=== PATIENT | female | born 1985 | race Caucasian/White ===

== ENCOUNTER 2018-06-18 01:00 | Observation (INO) | payer BC ==
[~2018-06-18] VITALS: Ht 154.9 cm; Wt 81.6 kg
[2018-06-18] VITALS (10 sets, daily range): BP systolic 88–120; BP diastolic 49–68
[~2018-06-18 01:00] MED LIST: FERR325T24 PO; MELA1TAB9 PO; MELA2.5T PO; PANT40TA65 PO
[2018-06-18] MEDS ORDERED: fentaNYL CITR 250 MCG/5 ML AMP ONE (08:22)
[2018-06-18] MEDS ORDERED: ROCURONIUM BROM 10 MG/ML 10 ML ONE (08:22)
[2018-06-18] MEDS ORDERED: ONDANSETRON 4 MG/2 ML VIAL ONE (08:22)
[2018-06-18] MEDS ORDERED: LIDOCAINE MPF 1% 5 ML VIAL ONE (08:22)
[2018-06-18] MEDS ORDERED: KETAMINE HCL-NS 50 MG/5 ML SYR ONE (08:22)
[2018-06-18] MEDS ORDERED: SUGAMMADEX SOD 200 MG/2 ML SDV ONE ×2 (08:22→11:53)
[2018-06-18] MEDS ORDERED: PROPOFOL EMUL(*) 10MG/ML 20 ML 20 ML ONE (08:22)
[2018-06-18] MEDS ORDERED: DEXAMETHASONE SOD 4 MG/ML VIAL ONE (08:22)
[2018-06-18 08:23] LABS: PLATELET COUNT, AUTOMATED 276 K/uL (150-450)
[2018-06-18] MEDS ORDERED: LEVOFLOXACIN/D5W*500 MG/100 ML 100 ML IVPB ONE (09:15)
[2018-06-18] MEDS ORDERED: NORMOSOL R SOLN(*) 1000 ML BAG 1,000 ML IV PRN (09:15)
[2018-06-18] MEDS ORDERED: MIDAZOLAM 2 MG/2 ML VIAL IVP PRN (09:15)
[2018-06-18] MEDS ORDERED: LIDOCAINE/SOD BICARB 8.4% SYR ID ONE (09:15)
[2018-06-18] MEDS ORDERED: CLINDAMYCIN(*) 600 MG/NS 50 ML 50 ML IV ONE (09:15)
[2018-06-18] MEDS ORDERED: MANNITOL* (20%)100 GM/500ML BG 500 ML IVPB ONE (09:43)
[2018-06-18] MEDS ORDERED: ROPIVACAINE 0.2% 20 ML VIAL ONE (09:43)
[2018-06-18] MEDS ORDERED: HYDROmorphone HCL 2 MG/ML SDV ONE (09:49)
--- NOTE | 2018-06-18 12:20 | Post Operative Note ---
Operative Note - MANAGER EMPLOYMENT Operative Day Date: Jun 18, 2018 Time: 12:18 Physicians Surgeon: Lm Armorer Technician: Esmer Laguerre Anesthesia: GETA Diagnosis Pre-Op Diagnosis: Enlarged uterus Dysmenorrhea Menorrhagia Iron deficiency anemia Post-Op Diagnosis: same Procedure Findings: enlarged uterus adhesions to left sidewall Procedure(s): RATLH [facility] Bilateral salpingectomy Adhesiolysis (30 min) Specimen Removed:(Maybe N/A): uterus tubes Complications: [id number] Fluids Fluids: 1800 ml Estimated Blood Loss: minimal Dictated Date OP Note Dictated: Jun 18, 2018 Time OP Note Dictated: 12:20 Copies to: LEXIE JAMES MD ; LEXIE JAMES MD Jun 18, 2018 12:20
[2018-06-18] MEDS ORDERED: HYDROmorphone HCL 2 MG TAB PO PRN (12:25)
[2018-06-18] MEDS ORDERED: ZOLPIDEM TARTRATE 10 MG TAB PO PRN (12:25)
[2018-06-18] MEDS ORDERED: ACETAMINOPHEN 325 MG TAB PO PRN (12:25)
[2018-06-18] MEDS ORDERED: PROMETHAZINE 25 MG/ML 1 ML AMP IVP PRN (12:25)
[2018-06-18] MEDS ORDERED: OXYC-865 PO (12:34)
[2018-06-18] MEDS ORDERED: IBUP800T37 PO (12:34)
[2018-06-18] MEDS ORDERED: DOCU-416 PO (12:34)
[2018-06-18] MEDS ORDERED: fentaNYL CITR 100 MCG/2 ML AMP ONE (12:49)
--- NOTE | 2018-06-18 13:19 | OPERATIVE REPORT 1 ---
EVENT DATE: June 18, 2018 SURGEON: John Amato MD ANESTHESIOLOGIST: J Luis Odonnell MD ANESTHESIA: General endotracheal. CHEMIST FOOD: EMMETT Higgins PREOPERATIVE DIAGNOSES 1. Enlarged uterus. 2. Secondary dysmenorrhea. 3. Menorrhalgia. 4. Iron deficiency anemia. POSTOPERATIVE DIAGNOSES 1. Enlarged uterus. 2. Secondary dysmenorrhea. 3. Menorrhalgia. 4. Iron deficiency anemia. PROCEDURES PERFORMED 1. Robotic-assisted total laparoscopic hysterectomy. 2. Bilateral salpingectomy. 3. Modified Hung's culdoplasty. 4. Diagnostic cystoscopy. 5. Robotic-assisted laparoscopic adhesiolysis (30 minutes). ESTIMATED BLOOD LOSS Minimal.. FLUIDS 1800 ccs IV crystalloid. URINE OUTPUT Not measured. FINDINGS Enlarged uterus, scarring from prior caesarean section x3 overlying the anterior uterus and bladder. There was some mild adhesive disease in the left adnexa to the descending colon. This adhesive disease required an additional 30 minutes of operative time to restore anatomy and to successfully perform the hysterectomy. Normal appearing bladder. No visible injuries post procedure and post procedure bilateral ureteral patency confirmed with excellent urine jets observed bilaterally. PROCEDURE IN DETAIL The patient was brought to the operating room with a working IV and placed in the dorsal supine position. She was placed under general endotracheal anesthesia and moved to the dorsal lithotomy position. She was then prepped and draped in the usual sterile fashion. A weighted speculum was placed in the vagina. The cervix was grasped on the anterior lip with a single-tooth tenaculum. It was carefully sounded to a depth of 10 cm, anteverted. The cervix was dilated in order to accommodate a VCare uterine manipulator, which was selected, assembled, passed through the cervix into the uterus, bulb inflated and secured. The VCare cup was sutured in place and the NuMo cup was approximated against this VCare cup. Cano catheter was placed to dependent drainage and the legs were brought back to the supine position. Gloves were changed and we proceeded with laparoscopy. Approximately 2 cm above the umbilicus, the skin was infiltrated with 0.2% Naropin and an 8 mm stab incision was made. The anterior abdominal wall was then elevated while Veress needle was passed through this incision and into the abdomen under a blunt technique. The insufflator was connected and the anterior abdominal wall was elevated and a negative pressure was observed on the insufflator device. Therefore, insufflation proceeded until pneumoperitoneum had been created of 20 mmHg. The Veress needle was removed and an 8 mm bladeless trocar was passed through this incision into the abdomen under direct visualization with the scope. The abdomen and pelvis were surveyed with the above findings noted. Additional laparoscopic ports were placed as follows: Both right and left lateral 8 cm spacing, two ports on the left and two ports on the right, all placed under similar technique and under direct visualization without incident. The patient was then moved to 23 degrees Trendelenburg and the bowel was swept out of the pelvis. Instruments were then placed and followed directly into the abdomen. Using the scope, vessel sealer on arm #1, monopolar scissors on #3 and ProGrasp on #4. Once adequately placed and the targeting procedure had passed as well. I scrubbed out of the bedside and presented to the console. The hysterectomy proceeded as follows. The right fallopian tube was elevated and the mesosalpinx exposed. The vessel sealer was used to cauterize and transect the mesosalpinx up to the utero-ovarian ligament. The utero-ovarian ligament was then cauterized and transected with the vessel sealer. This exposed the round ligament, which was cauterized and transected with the vessel sealer. The broad ligament was then in the anterior and posterior leaflets. The uterus was deflected downward while the anterior dissection was performed with the assistance of the ProGrasp elevating the peritoneum, a linear incision was made along the anterior uterus in the line of where the previous caesarean section scar was. This was carefully dissected down to the uterus and dissected back, exposing the vagina and the VCare cup bulging from below. Colpotomy was performed, confirming the VCare cup after adequate dissection of the bladder was performed. The posterior broad ligament was then dissected towards the uterosacral ligament in order to expose and skeletonize the uterine vessels. These were cauterized and transected in a perpendicular fashion and then parallel bites along the lateral uterus was performed down to and overlying the VCare cup, allowing this vascular pedicle to fall away. Attention was then turned to the contralateral side. The adhesions in that location required an additional 30 minutes of operative time to perform adhesiolysis and free the fallopian tube from the pelvic sidewall as well as the ovary from its adhesive disease to the descending colon and the descending colon from its adhesive disease to the left pelvic sidewall. This was carefully performed and successfully freeing up the structures to restore the anatomy. Once this was completed, the left fallopian tube was transected through the mesosalpinx and dissected to the utero-ovarian ligament, which was cauterized and transected with the vessel sealer. This exposed the round ligament, which was cauterized and transected, and the broad ligament was then in anterior and posterior leaflets. The anterior dissected was completed, further skeletonizing the vessels anteriorly and posteriorly down to the uterosacral ligament. The remaining vessels of the uterus were skeletonized and then transected in perpendicular fashion x2 and then cauterized along the lateral uterus down to and overlying the VCare cup at the cervix. The colpotomy was then extended circumferentially through the uterosacral ligaments posteriorly into the other side, freeing the uterus from its pelvic connection. The uterus was then taken out through the vagina. Due to its large size, it was a tight fit but ultimately was able to pass through the vagina but in the process it disrupted the left vascular pedicle and some brisk bleeding was noted immediately from that side. I was, however, able to isolate the bleeder with the assistance of the ProGrasper and the bipolar vessel sealer and cauterizing across this bleeder controlled the bleeding sufficiently. There was some oozing from the right vascular pedicle as well but not as brisk and this was controlled with a bipolar fenestrated grasper. Once hemostasis was achieved and pelvis was irrigated and suctioned out, instruments were changed for suturing. An 0-Vicryl was then used to suture ligate in a [id number] fashion the right vaginal angle to the ipsilateral uterosacral ligament and the same procedure was followed on the contralateral side. Once this had been adequately suture ligated, the remaining vaginal cuff was closed with a 2-0 VLoc suture in a running nonlocking fashion. Upon completion, there was excellent hemostasis and support of the vaginal cuff to the uterosacral ligaments and closure. The pelvis was irrigated and suctioned dry. All vascular pedicles were inspected and found to be hemostatic. Ovaries were once again inspected and found to be normal in appearance and viable. Therefore, the hysterectomy procedure was completed and the robot was undocked. I scrubbed back in to the bedside to perform diagnostic cystoscopy. The robotic instruments were removed after the abdomen was suctioned out. The skin incisions were repaired with 4-0 Monocryl simple subdermal and covered with Dermabond skin adhesive. Diagnostic cystoscopy was performed with 20% Mannitol insufflation. The entire bladder was inspected and found to be without injury. Both ureteral orifices were observed to have an excellent urine jet, confirming ureteral patency with no visible complications. Therefore, the procedure was terminated, the bladder was drained. Cano catheter was left out. The legs were brought back to the supine position. She was awakened from general anesthesia in stable condition and taken to recovery. Sponge, lap, needle and instrument counts were all correct x3. MTDD
[2018-06-18] MEDS: DLR(*) 1000 ML BAG 1,000 ML IV PRN ×2 (15:06→21:50)
[2018-06-18] MEDS ORDERED: BELLADONNA ALK/OPIUM 60MG SUPP PR ONE (16:30)
[2018-06-18] MEDS: SIMETHICONE 80 MG CHEW CHEW PRN (17:17)
[2018-06-18] MEDS: KETOROLAC 30 MG/ML VIAL IVP SCH (17:57)
--- NOTE | 2018-06-18 18:27 | NUR ---
RN responded to husbands request for help. states that pt. has gotten up twice on own now to bathroom. RN Reinstructed on nopt getting up on own, to please call for assistance. Addendum: 06/18/18 at 1829 by MARIA ISABEL ESPINAL RN Amended: Links added.
[2018-06-18] MEDS: DOCUSATE CALCIUM 240 MG CAP PO SCH (21:11)
[2018-06-18] MEDS: FAMOTIDINE 20 MG TAB PO SCH (21:11)
[2018-06-19] VITALS (7 sets, daily range): BP systolic 100–126; BP diastolic 2–72
[2018-06-19] MEDS: KETOROLAC 30 MG/ML VIAL IVP SCH ×2 (00:11→06:11)
[2018-06-19] MEDS: DLR(*) 1000 ML BAG 1,000 ML IV PRN ×3 (04:20→23:08)
[2018-06-19 06:22] LABS: PLATELET COUNT, AUTOMATED 271 K/uL (150-450)
--- NOTE | 2018-06-19 08:05 | OB/GYN Progress Note ---
OB Subjective Progress Notes Subjective Feels bloated this morning. Difficulty voiding last night and palomo catheter placed. Removed the catheter this morning. Ambulating with discomfort. Working on weaning off O2 but pt is regular smoker from [place]. Encouraging incentive spirometer use with coughing fits. GI: NEG Nausea : Other (had difficulty voiding last night and palomo catheter placed) Pain: Mild, Moderate OB Objective Physical Exam Vital Signs Date Time Temp Pulse Resp B/P (MAP) Pulse Ox O2 Delivery O2 Flow Rate FiO2 06/19/18 07:26 95 Nasal Cannula 3.0 06/19/18 07:25 98.8 72 32 110/61 (77) Intake and Output 06/19/18 07:00 Intake Total 6920 ml Output Total 2950 ml Balance 3970 ml Intake Oral 1020 ml IV Total 3950 ml Other 1950 ml Output Urine Total 2900 ml Estimated Blood Loss 50 ml General Appearance: Alert/Awake/No Acute Distress, Other (moves well upon request) Neurological: No Gross deficits Cardiovascular: Normal Rhythm & Peripheral Pulses, Regular Rate and Rhythm Respiratory: No Respiratory Distress, Clear to Auscultation Abdomen: Other (distented an typanic representing gas distension; soft otherwise and surgically appropriate to palpation without peritoneal signs) Incision: Clean, Dry, Intact, Dermabond Musculoskeletal: No Weakness/Pain Extremities: No Cyanosis,Clubbing or Edema Integumentary: Skin Intact without Lesions or Rash Psychological: Alert & Oriented X3, Appropriate Mood & Affect Result Diagram: 06/19/18 0608 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 If not sufficient for discharge, home tomorrow. (3) Postoperative hypoxia Assessment & Plan: Will do pulmonary treatments today and ambulate. Continue deep breathing and IS use. Wean off O2. LEXIE JAMES MD Jun 19, 2018 08:05
[2018-06-19] MEDS ORDERED: ALBUTEROL/IPRATROPIUM 3 ML NEB NEB ONE (08:20)
[2018-06-19] MEDS ORDERED: NICOTINE 21 MG/24 HR PATCH TD ONE (09:00)
[2018-06-19] MEDS: DOCUSATE CALCIUM 240 MG CAP PO SCH ×2 (09:15→20:49)
[2018-06-19] MEDS: PANTOPRAZOLE SOD 40 MG TABEC PO SCH (09:15)
[2018-06-19] MEDS: FAMOTIDINE 20 MG TAB PO SCH ×2 (09:15→20:49)
[2018-06-19] MEDS: SIMETHICONE 80 MG CHEW CHEW PRN (11:28)
[2018-06-19] MEDS ORDERED: ALBUTEROL/IPRATROPIUM 3 ML NEB NEB SCH (12:00)
[2018-06-19] MEDS ORDERED: IBUPROFEN 800 MG TAB PO PRN (12:00)
[2018-06-19] MEDS ORDERED: IOPAMIDOL 76% 100 ML INFUS BTL 100 ML ONE (12:07)
[2018-06-19] MEDS ORDERED: NS(*) 0.9% 50 ML BAG 50 ML ONE (12:08)
[2018-06-19] MEDS: BISACODYL 10 MG SUPP PR PRN ×2 (12:37→23:24)
[2018-06-19] MEDS ORDERED: BELLADONNA ALK/OPIUM 60MG SUPP PR ONE (12:55)
--- NOTE | 2018-06-19 13:17 | RADIOLOGY IMAGING REPORT ---
FACILITY: [facility] PATIENT NAME: Crystal Argueta : 1985 MR: [id number] V: [id number] EXAM DATE: ORDERING PHYSICIAN: LEXIE JAMES TECHNOLOGIST: Location: [facility] [place] Patient: Crystal Argueta : 1985 Visit/Account:[id number] Date of Sevice: 06/19/2018 CT CTA CHEST W & W/O CON COMPARISON: None. HISTORY: Increasing respiratory distress with history of recent surgery/partial hysterectomy. TECHNIQUE: Axial CT angiography of the chest with intravenous contrast. Coronal and sagittal reform ats. Coronal MIP reconstructions were also created for further evaluation and interpretation. One of the following dose optimization techniques was utilized in the performance of this exam: auto mated exposure control; adjustment of the mA and/or kV according to patient size; or use of iterative reconstruction technique. Specific details can be referenced in the facility's radiology CT exam op erational policy. CONTRAST: 75 mL of IV Isovue-370. CT CHEST FINDINGS: CARDIAC: Unremarkable. MEDIASTINUM/KEVEN: Unremarkable. No mass or significantly enlarged lymph nodes. VASCULATURE: There is cardiac pulsation artifact in the ascending aorta and main pulmonary artery. No evidence of acute pulmonary embolism to the proximal segmental level. CHEST WALL: Unremarkable. No mass or axillary adenopathy. LUNGS/PLEURA: No definite effusion. Dense dependent subsegmental atelectasis in the lower lobes bila terally. No consolidation, edema, or bronchial wall thickening. BONES: Unremarkable. LIMITED ABDOMEN: Unremarkable. OTHER: Negative. IMPRESSION: 1. There is no evidence of acute pulmonary embolus to the proximal segmental arterial level. 2. Dense dependent lower lobe subsegmental atelectasis. Otherwise unremarkable CTA chest. Report Dictated By: Francesco Waldron at 06/19/2018 1:07 PM Report E-Signed By: Francesco Waldron at 06/19/2018 1:11 PM [id number]
--- NOTE | 2018-06-19 13:51 | RADIOLOGY IMAGING REPORT ---
[place] [facility] [place] Crystal Argueta : 1985 MR: [id number] V: [id number] EXAM DATE: ORDERING PHYSICIAN: LEXIE JAMES TECHNOLOGIST: Location: [facility] Patient: Crystal Argueta : 1985 Visit/Account:[id number] Date of Sevice: 06/19/2018 Study: ACUTE ABDOMEN SERIES 3 VIEW Indication: Abdominal distention. Patient status post hysterectomy Comparison study: None available Findings: Upright chest and upright and supine views of the abdomen demonstrates no evidence of pneum operitoneum. There is patchy infiltrate at the right base. The abdomen is unremarkable in appearanc e. There is contrast present within the urinary system. There is a moderate amount of stool present within the colon. There is no evidence of small bowel obstruction. The visualized bony structures are unremarkable. IMPRESSION: Patchy infiltrate at right base. Report Dictated By: Frankie Flowers at 06/19/2018 1:43 PM Report E-Signed By: Frankie Flowers at 06/19/2018 1:45 PM WSN:[id number]
[2018-06-19] MEDS ORDERED: MAGNESIUM HYDROXIDE* 30ML UDCP PO ONE (14:10)
[2018-06-19] MEDS: ONDANSETRON 4 MG/2 ML VIAL IV PRN (15:53)
[2018-06-19] MEDS ORDERED: LEVALBUTEROL 1.25 MG/3 ML NEB NEB PRN (17:50)
[2018-06-19] MEDS ORDERED: LIDOCAINE 2% VISC SLN 15ML UDC TP ONE (18:05)
[2018-06-19] MEDS ORDERED: LORazepam 1 MG TAB PO ONE (19:25)
[2018-06-19] MEDS ORDERED: LORazepam 2 MG/ML VIAL IVP ONE (19:30)
--- NOTE | 2018-06-19 20:16 | OB/GYN Progress Note ---
OB Subjective Progress Notes Subjective Abdominal distension through day and marginal O2 saturations. CTA today negative and abdominal series showed moderate stool, no evidence of SBO. Emesis of bile today and still little to no bowel sounds. GI: POS Nausea Pain: Mild, Moderate OB Objective Physical Exam Vital Signs Date Time Temp Pulse Resp B/P (MAP) Pulse Ox O2 Delivery O2 Flow Rate FiO2 06/19/18 15:14 98.8 86 24 126/70 (88) 94 Nasal Cannula 3.0 Intake and Output 06/19/18 07:00 Intake Total 6920 ml Output Total 2950 ml Balance 3970 ml Intake Oral 1020 ml IV Total 3950 ml Other 1950 ml Output Urine Total 2900 ml Estimated Blood Loss 50 ml General Appearance: Alert/Awake/No Acute Distress, Other (moves well upon request) Neurological: No Gross deficits Cardiovascular: Normal Rhythm & Peripheral Pulses, Regular Rate and Rhythm Respiratory: No Respiratory Distress, Clear to Auscultation Abdomen: Other (distented an typanic representing gas distension; soft otherwise and surgically appropriate to palpation without peritoneal signs; bowel sounds hypoactive to absent) Incision: Clean, Dry, Intact, Dermabond Musculoskeletal: No Weakness/Pain Extremities: No Cyanosis,Clubbing or Edema Integumentary: Skin Intact without Lesions or Rash Psychological: Alert & Oriented X3, Appropriate Mood & Affect Result Diagram: 06/19/18 0608 Assessment and Plan Problems: (1) Other specified aftercare following surgery (2) History of robot-assisted laparoscopic hysterectomy (3) Postoperative hypoxia Assessment & Plan: Continue pulmonary therapy and wean O2. May need to go home with O2. (4) Ileus, postoperative Assessment & Plan: NG tube place to low intermittent suction but pt having significant anxiety. Will treat anxiety with Ativan tonight. Ambulate tomorrow. Bowel rest with NPO other than sips/chips. Continue Dulcolax suppositories every 12 hours. Add Reglan 10 mg IV q 12 hours. LEXIE JAMES MD Jun 19, 2018 20:16
[2018-06-19] MEDS ORDERED: METOCLOPRAMIDE 10 MG/2 ML SDV IVP ONE (20:20)
[2018-06-19] MEDS: ACETAMINOPHEN 500 MG TAB PO PRN (20:49)
[2018-06-19] MEDS: KETOROLAC 15 MG/ML VIAL IVP SCH (22:44)
[2018-06-20] MEDS ORDERED: KETOROLAC 15 MG/ML VIAL IVP SCH (01:00)
[2018-06-20 03:00] VITALS: BP 124/75
[2018-06-20] MEDS: ONDANSETRON 4 MG/2 ML VIAL IV PRN (03:03)
[2018-06-20] MEDS: KETOROLAC 15 MG/ML VIAL IVP SCH (05:40)
[2018-06-20] MEDS: DLR(*) 1000 ML BAG 1,000 ML IV PRN (05:40)
[2018-06-20 06:28] LABS: PLATELET COUNT, AUTOMATED 195 K/uL (150-450)
[2018-06-20] MEDS: ACETAMINOPHEN 500 MG TAB PO PRN (07:30)
[2018-06-20 07:45] VITALS: BP 114/70
[2018-06-20] MEDS ORDERED: INFLUENZA VIRUS VAC 0.5ML SYR IM ONLY ONE (09:00)
[2018-06-20] MEDS: FAMOTIDINE 20 MG TAB PO SCH (09:20)
[2018-06-20] MEDS: PANTOPRAZOLE SOD 40 MG TABEC PO SCH (09:20)
[2018-06-20] MEDS: DOCUSATE CALCIUM 240 MG CAP PO SCH (09:20)
[2018-06-20] MEDS ORDERED: NICOTINE 21 MG/24 HR PATCH TD SCH (09:30)
--- NOTE | 2018-06-20 09:32 | OB/GYN Progress Note ---
OB Subjective Progress Notes Subjective Improved. Less bloating and has passed gas now. This was following NG tube placement which has been removed now. Still requiring O2. GI: NEG Nausea : Voiding Well Pain: Mild OB Objective Physical Exam Vital Signs Date Time Temp Pulse Resp B/P (MAP) Pulse Ox O2 Delivery O2 Flow Rate FiO2 06/20/18 07:00 78 89 Nasal Cannula 1.5 06/20/18 03:00 99.1 24 124/75 (91) Intake and Output 06/20/18 07:00 Intake Total 703 ml Output Total 1825 ml Balance -1122 ml Intake Oral 120 ml IV Total 583 ml Output Urine Total 700 ml Gastric Drainage Total 725 ml Emesis 400 ml # Voids 2 General Appearance: Alert/Awake/No Acute Distress, Other (moves well upon request) Neurological: No Gross deficits Cardiovascular: Normal Rhythm & Peripheral Pulses, Regular Rate and Rhythm Respiratory: No Respiratory Distress, Clear to Auscultation Abdomen: Soft, Non-Tender, Non-Distended, Bowel Sounds Present Incision: Clean, Dry, Intact, Dermabond Musculoskeletal: No Weakness/Pain Extremities: No Cyanosis,Clubbing or Edema Integumentary: Skin Intact without Lesions or Rash Psychological: Alert & Oriented X3, Appropriate Mood & Affect Result Diagram: 06/20/18 0542 Assessment and Plan Problems: (1) Other specified aftercare following surgery Assessment & Plan: Will advance diet today and if does well, home later today. (2) History of robot-assisted laparoscopic hysterectomy (3) Postoperative hypoxia (4) Ileus, postoperative LEXIE JAMES MD Jun 20, 2018 09:32
--- NOTE | 2018-06-20 09:33 | Short(Outpt) Discharge Summary ---
Discharge Summary Reason for Hosp/Final Diag: (1) Other specified aftercare following surgery (2) History of robot-assisted laparoscopic hysterectomy Hospital Course & Plan: If improves today, home later. If not sufficient for discharge, home tomorrow. (3) Postoperative hypoxia Hospital Course & Plan: Will do pulmonary treatments today and ambulate. Continue deep breathing and IS use. Wean off O2. (4) Ileus, postoperative Hospital Course & Plan: NG tube place to low intermittent suction but pt having significant anxiety. Will treat anxiety with Ativan tonight. Ambulate tomorrow. Bowel rest with NPO other than sips/chips. Continue Dulcolax suppositories every 12 hours. Add Reglan 10 mg IV q 12 hours. Departure Discharge to: Home, Self Care Discharge Instructions Home Meds Active Scripts Oxycodone Hcl/Acetaminophen (PERCOCET 5-325 MG TABLET) 1 Each Tablet, 1 EACH PO Q4-6H PRN for PAIN, #20 TAB 0 Refills TAKE 1 TABLET NEEDED FOR PAIN - NO CLOSER THAN EVERY 4-6 HOURS. Prov:FCO CLANCY 06/18/18 Reported Medications Melatonin (MELATONIN) 2.5 Mg Tab.chew, 2-3 TAB PO HS, TAB.CHEW 06/13/18 Ferrous Sulfate (IRON) 325 Mg Tablet, 325 MG PO DAILY 06/13/18 Pantoprazole Sodium (PANTOPRAZOLE SODIUM) 40 Mg Tablet.dr, 40 MG PO QDAY, TAB.SR 06/13/18 Discontinued Reported Medications Melatonin/Pyridoxine HCl (B6) (Melatonin 3 mg Tablet) 1 Each Tablet, 2-3 TAB PO HS 06/13/18 Follow up Referrals: SCALLOP CUTTER MACHINE - In Two Weeks @ [facility] with LEXIE JAMES MD Diet: Regular Activity: As Tolerated Copies to: LEXIE JAMES MD ; LEXIE JAMES MD Jun 19, 2018 08:11
[2018-06-20 12:10] VITALS: BP 112/76
== END 2018-06-20 12:45 | disposition home or self-care (01) ==
LOC: OR 01:00 → PED 14:45
PROVIDERS: ADMIT Obstetrics & Gynecology; ATTEND Obstetrics & Gynecology
DX: N72 Inflammatory disease of cervix uteri (principal); N94.6 Dysmenorrhea, unspecified; N85.2 Hypertrophy of uterus; N92.0 Excessive and frequent menstruation with regular cycle; D50.9 Iron deficiency anemia, unspecified; R09.02 Hypoxemia; F41.9 Anxiety disorder, unspecified; K56.7 Ileus, unspecified
CPT/HCPCS: 36415; 58570; 71275; 74022; 82150; 83690; 84703; 85025; 88307; 94640; 94667; 94668; G0378; J1100; J1170; J1885; J1956; J2001; J2060; J2250; J2405; J2704; J2765; J2795; J3010; J3490; J7050; J7620; Q9967; S2900; 82040; 82247; 82310; 82374; 82435; 82565; 82947; 84075; 84132; 84155; 84295; 84450; 84460; 84520